=== PATIENT | male | born 1985 | race Two or more races ===

== ENCOUNTER 2020-06-13 18:00 | Emergency (ER) | payer MEDICAID, OTHER ==
[~2020-06-13] VITALS: Ht 177.8 cm; Wt 113.4 kg
[2020-06-13 20:34] VITALS: BP 101/67
== END 2020-06-13 21:08 | disposition home or self-care (01) ==
LOC: ER 18:02
DX: S06.0X0A Concussion without loss of consciousness, initial encounter (principal); S20.211A Contusion of right front wall of thorax, initial encounter; R51.9 Headache, unspecified; X58.XXXA Exposure to other specified factors, initial encounter; Y93.55 Activity, bike riding; Y92.89 Other specified places as the place of occurrence of the external cause; Y99.8 Other external cause status
CPT/HCPCS: 70450; 71250; 72125